=== PATIENT | male | born 1955 | race Caucasian/White ===

== ENCOUNTER 2020-02-08 11:11 | Emergency (ER) | payer OTHER, SELFPAY ==
[2020-02-08 11:20] VITALS: BP 164/92; PULSE 62; RESP 16; TEMP 37; O2SAT 98; BMI 33.5
[2020-02-08] MEDS: LIDO 1%/SOD BICARB 8.4% (10ML) 10 ML SYRINGE INJ (11:56)
--- NOTE | 2020-02-08 12:50 | ED_ITS ---
HPI - Extremity Injury (Upper) <SHANNAN Montnao - Last Filed: 02/08/20 14:31> General Chief Complaint: Extremity Injury, Upper Stated Complaint: cut ring finger on left hand Time Seen by Provider: 02/08/20 11:35 Source: patient Mode of arrival: Ambulatory Limitations: no limitations History of Present Illness HPI narrative: The patient is a 64-year-old male nonsmoker who denies pertinent medical history presents with a chief complaint of laceration to his ring finger on his left hand. He accidentally cut it with a knife while taking his knife out of the door in order to cut a muffin this morning. He states his tetanus is within the past 5 years. He states he has full range of motion. He had trouble controlling the bleeding sticking to the emergency department. He was concerned that he needs sutures Review of Systems <SHANNAN Montano - Last Filed: 02/08/20 14:31> Review of Systems Narrative: GENERAL: Denies chills, fatigue, malaise, fever, sweats. HEENT: Denies sinus pain, ear pain, sore throat, difficulty swallowing, dizziness. RESPIRATORY: Denies dyspnea, cough, wheezing, hemoptysis, sputum. CARDIOVASCULAR: Denies chest pain, palpitations, orthopnea, edema, GASTROINTESTINAL: Denies nausea, vomiting, abdominal pain, diarrhea, con stipation, melena. : Denies dysuria, frequency, incontinence, hematuria, urinary retention. MUSCULOSKELETAL: denies weakness, joint pain, or bony pain SKIN: See HPI NEUROLOGIC: Denies weakness, headache, numbness, change in speech, confusion, seizures, incoordination. PSYCHIATRIC: No concerning psychosocial issues. 12 point review of systems is negative except for those stated above Patient History <SHANNAN Montano - Last Filed: 02/08/20 14:31> Social History Smoking Status: Never smoker Smoking Status: Never smoker alcohol intake frequency: 0-2 drinks per day Substance Use Type: does not use Exam <SHANNAN Montano - Last Filed: 02/08/20 14:31> Narrative Exam Narrative: GENERAL: This is a well-nourished, well-developed patient, in no acute distress HEAD: Atraumatic. Normocephalic. No temporal or scalp tenderness. EYES: Pupils equal round and reactive. Extraocular motions intact. No scleral icterus. No injection or drainage. ENT: Nose without bleeding, purulent drainage or septal hematoma. Throat without erythema, tonsillar hypertrophy or exudate. Uvula midline. Airway patent. NECK: Trachea midline. No JVD or lymphadenopathy. Supple, nontender, no meningeal signs. CARDIOVASCULAR: Regular rate and rhythm RESPIRATORY: No cough. No increased respiratory effort. No accessory muscle use. EXTREMITIES: Able flex and extend left ring finger against resistance. Skin exam is noted. Capillary refill less than 2 seconds. Positive left radial pulse. BACK: Nontender without deformity or crepitance. No flank tenderness. NEURO: AOx3. SKIN: 1.5 cm laceration on tip of left ring finger. Through dermis. Oozing blood. Linear. No obvious muscle or tendon involvement. Initial Vital Signs Initial Vital Signs: Vital Signs Temperature 98.6 F 02/08/20 11:20 Pulse Rate 62 02/08/20 11:20 Respiratory Rate 16 02/08/20 11:20 Blood Pressure 164/92 H 02/08/20 11:20 Pulse Oximetry 98 02/08/20 11:20 <Alexi Can MD - Last Filed: 02/08/20 19:47> Initial Vital Signs Initial Vital Signs: Vital Signs Temperature 98.6 F 02/08/20 11:20 Pulse Rate 62 02/08/20 11:20 Respiratory Rate 16 02/08/20 11:20 Blood Pressure 164/92 H 02/08/20 11:20 Pulse Oximetry 98 02/08/20 11:20 Procedures <SHANNAN Montano - Last Filed: 02/08/20 14:31> Laceration Repair Laceration 1: Site: hand Side (If applicable): left Size (cm): 1.5 Description: linear Depth: simple, single layer Pre-repair: wound explored, irrigated extensively (Cleansed with Hibiclens) and deep structures intact Skin layer closed with: nylon Size (cm): 5-0 Number of sutures: 3 Technique: simple, interrupted Nerve Block Nerve Block 1: Local Anesthetic: lidocaine 1% and with bicarb Amount of anesthesia used (mL): 6 Side: left Nerve Blocks: digital Procedure Successful: Yes Patient Tolerated Procedure: Well Complications: none Course <SHANNAN Montano - Last Filed: 02/08/20 14:31> Orders Ordered: Discontinued Medications Lidocaine/Sodium Bicarbonate (Buffered Lidocaine 10 Ml Syr) 10 ml INJ NOW ONE Stop: 02/08/20 11:45 Last Admin: 02/08/20 11:56 Dose: 10 ml Documented by: RENETTA Vital Signs Vital signs: Vital Signs - 8 hr 02/08/20 11:20 Temperature 98.6 F Pulse Rate 62 Respiratory Rate 16 Blood Pressure 164/92 H Pulse Oximetry 98 <Alexi Can MD - Last Filed: 02/08/20 19:47> Orders Ordered: Discontinued Medications Lidocaine/Sodium Bicarbonate (Buffered Lidocaine 10 Ml Syr) 10 ml INJ NOW ONE Stop: 02/08/20 11:45 Last Admin: 02/08/20 11:56 Dose: 10 ml Documented by: RENETTA Vital Signs Vital signs: Vital Signs - 8 hr 02/08/20 11:20 Temperature 98.6 F Pulse Rate 62 Respiratory Rate 16 Blood Pressure 164/92 H Pulse Oximetry 98 MDM - Extremity Injury (Upper) <SHANNAN Montano - Last Filed: 02/08/20 14:31> MDM Narrative Medical decision making narrative: The patient is a 64-year-old male who presents with a chief complaint of a laceration from a knife this morning. Patient declines x-ray. Tetanus is up-to-date. Patient was sutured as per procedural note. I discussed at length monitoring for signs and symptoms of infection such as redness purulent drainage etcetera. Discussed follow-up for suture removal in 7 days. Patient mentioned taking out his sutures himself and I encouraged him to follow up with somebody for that rather than doing it himself. Patient has no questions or concerns upon discharge and states understanding of return precautions as well as follow-up care. Discharge Plan Departure Patient Disposition: Home Clinical Impression: Laceration Discharge Date/Time: 02/08/20 12:55 Instructions: DI for Laceration Repair -- Simple, DI for Minor Laceration Activity Restrictions/Additional Instructions: Thank you for trusting us with your care today. Please monitor your laceration for signs and symptom of infection such as redness, purulent drainage etcetera. Please follow up with these occur Please rest your finger and do not use your finger to much as this can stress your sutures. Please follow-up in approximately 1 week for suture removal Please come back to the emergency department for any acute concerns Referrals: Phan Hernández MD [Primary Care Provider] -
== END 2020-02-08 12:55 | disposition home or self-care (01) ==
PROVIDERS: Emergency Provider Nurse Practitioner Family; PCP Family Medicine
DX: S61.215A Laceration without foreign body of left ring finger without damage to nail, initial encounter (principal); W26.0XXA Contact with knife, initial encounter
CPT/HCPCS: 12001; 64450; 99283

== ENCOUNTER 2020-09-18 13:43 | Emergency (ER) | payer OTHER, SELFPAY ==
[2020-09-18 13:50] VITALS: BP 147/92; PULSE 88; RESP 16; TEMP 37.2; O2SAT 97; BMI 33.5
--- NOTE | 2020-09-18 13:55 | DI.RAD.S_ITS ---
PROCEDURE: XR RIBS LT MIN 3V W CXR1V INDICATIONS: fall, left lower back pain TECHNIQUE: 3 views of the left ribs were acquired, along with a single view chest. COMPARISON: None. FINDINGS: Surgical changes and devices: None. Bones and chest wall: No fractures or dislocations. No suspicious bony lesions. Overlying soft tissues appear unremarkable. Lungs and pleura: An incomplete inspiratory result is noted, causing a crowded appearance to the lung markings. Mild, streaky opacities are seen at the lung bases. No pneumothorax or significant pleural effusions are seen. Mediastinum: Mediastinal contours appear normal. Heart size is normal. IMPRESSION: No displaced rib fractures can be seen. No pneumothorax. Presumed atelectasis is seen at the lung bases in this patient with low lung volumes. Dictated by: Ollie Deutsch M.D. on 09/18/2020 at 13:14 Approved by: Ollie Deutsch M.D. on 09/18/2020 at 13:16
--- NOTE | 2020-09-18 14:05 | DI.CT.S_ITS ---
PROCEDURE: CT CHEST ABD PEL W CON INDICATIONS: fall from 3-4 feet, flank/rib pain, hematuria TECHNIQUE: After the administration of intravenous contrast, 5 mm thick sections acquired from the lung apices to the symphysis. 2.5 mm thick coronal and sagittal reformats were acquired. Additional 7 mm thick coronal maximum intensity projection (MIP) reformats acquired through the lungs. Optional 10-minute delayed imaging may be performed from the kidneys to the bladder. For radiation dose reduction, the following was used: automated exposure control, adjustment of mA and/or kV according to patient size. COMPARISON: [facility], CR, XR RIBS LT MIN 3V W CXR1V, 09/18/2020, 13:57. FINDINGS: Image quality: There is artifact associated with the metallic hardware. Artifact from the metallic hardware is reduced by metal reconstruction algorithm. CHEST: Lungs: No pulmonary contusions or lacerations. No acute airspace opacities. No pneumothorax or hemothorax. Central and peripheral airways appear patent and normal in caliber. Mediastinum: No mediastinal hematomas. Heart size is normal. Moderate to prominent coronary artery calcification can be seen. No pericardial effusion. Thoracic aorta and pulmonary arteries demonstrate normal size and enhancement. No mediastinal or hilar adenopathy. Esophagus is normal in caliber. No hiatal hernia. Chest wall: No rib fractures. No subcutaneous emphysema. No axillary or supraclavicular adenopathy. Thyroid gland demonstrates no significant abnormality. Remote, healed right anterolateral rib fractures can be seen. ABDOMEN: Solid organs: Liver is normal in size and enhancement, without lacerations. Diffuse fatty liver infiltration is noted. Gallbladder is largely decompressed at the time of this study. Biliary system is non-dilated. Pancreas enhances normally, without transection. Spleen is normal in size and enhancement, without lacerations. Incidental note is made of an accessory splenule along the posterior aspect of the primary spleen. No adrenal hematomas. Both kidneys enhance normally, without hydronephrosis or lacerations. Peritoneum and bowel: No free fluid or air. Unenhanced bowel loops demonstrate normal wall thickness and caliber. Nodes and vessels: No retroperitoneal or mesenteric adenopathy. Aorta and inferior vena cava are normal in size and enhancement. Miscellaneous: No ventral hernias. PELVIS: Genitourinary: Bladder wall thickness is normal. The prostate is prominent, measuring 5.2 cm transversely Miscellaneous: No inguinal hernias or adenopathy. Bones: There is a left hip arthroplasty. Pelvic ring and hip joints appear intact. Remote appearing thoracolumbar anterior wedge deformities are seen. No Focal L5-S1 degenerative change acute vertebral compression fractures. Mild levoconvex scoliotic curvature is noted. Focal L5-S1 degenerative change is seen. Milder degenerative changes are seen elsewhere. IMPRESSION: No fred, acute posttraumatic abnormality can be seen. No displaced rib fracture can be seen. No fractures are seen elsewhere. No pneumothorax. No solid organ injury can be seen. No free air or significant free fluid can be seen. Incidental note is made of: Moderate to prominent coronary artery calcification Remote, healed right anterolateral rib fractures Fatty liver infiltration Accessory splenule Levoconvex scoliotic curvature Left hip arthroplasty Prominent prostate Dictated by: Ollie Deutsch M.D. on 09/18/2020 at 13:44 Approved by: Ollie Deutsch M.D. on 09/18/2020 at 13:49
[2020-09-18] MEDS: HYDROMORPHONE 0.5 MG INJ IV (14:18)
[2020-09-18] MEDS: SODIUM CHLORIDE 0.9% 500 ML 1000 ML IV (14:18)
[2020-09-18 14:24] LABS: Add Manual Diff / Slide Review NO; Basophils Absolute Auto 100 /uL (0-100); Basophils Percent Auto 0.7 % (0-2); Eosinophils Absolute Auto 200 /uL (0-450); Eosinophils Percent Auto 2.2 % (2-4); Hematocrit 45.7 % (41-53); Hemoglobin 15.9 g/dL (13.5-17.5); Lymphocytes Absolute Auto 1700 /uL (1100-4500); Lymphocytes Percent Auto 22.5 % (25-40); Mean Corpuscular HGB Conc 34.7 % (30-36); Mean Corpuscular Hemoglobin 32.1 PG (26-34); Mean Corpuscular Volume 92.5 fL (80-100); Monocytes Absolute Auto 700 /uL (0-900); Monocytes Percent Auto 9.6 % (3-14); Neutrophils Absolute Auto 4900 /uL (1500-7000); Platelet Count 232 X10^3/uL (150-400); Red Blood Cell Count 4.94 X10^6/uL (4.5-5.9); Red Cell Distribution Width 13.3 % (11.6-14.8); White Blood Cell Count 7.5 X10^3/uL (4.5-11.0)
[2020-09-18 14:35] LABS: HEMOLYSIS < 15 (0-50); Potassium 4.2 mmol/L (3.4-5.1)
[2020-09-18 14:36] LABS: BUN Creatinine Ratio 16.9 (6-22); Blood Urea Nitrogen 13 mg/dL (9-20); Carbon Dioxide 27 mmol/L (22-32); Chloride 106 mmol/L (98-107); Estimated Glomerular Filt Rate > 60.0 mL/min (>60); Glucose 82 mg/dL (80-110); Sodium 139 mmol/L (137-145)
--- NOTE | 2020-09-18 14:36 | ED_ITS ---
HPI - Fall General Chief Complaint: Fall Stated Complaint: fell off countertop on 09/15, hurt back Time Seen by Provider: 09/18/20 13:46 Source: patient Mode of arrival: Ambulatory Limitations: no limitations History of Present Illness HPI Narrative: 65-year-old male nonsmoker with noncontributory chronic medical history presents with his in the chief complaint of increasingly severe left lower back pain over the past few days. He had been in his normal state of health until he accidentally fell from a height of approximately 3-4 feet and landed on his back. He denies any head or neck pain. He takes no blood thinners. He denies any chest pain or shortness of breath. He states that he was coming off a ladder and attempting to step onto a 36 in tall countertop when he missed it and therefore fell backwards. He states that he had some aching pain initially but over the following 2 days or so his pain became significantly worse. When he moves the pain can be as high as a 9/10 and when at rest and improves to about 5/10. He has attempted to treat his pain with Tylenol and cyclobenzaprine with minimal relief. He denies any trouble controlling bowel or bladder. He denies any radiation of the pain. He denies any dysuria, frequency, urgency or hematuria MD complaint: fall Onset (ago): day(s) Fall from: from height (distance) Fall witnessed: no Place fall occurred: home Loss of consciousness: none Prolonged down time: no Symptoms prior to fall: none Context: tripped/slipped Location of injury: back Severity: severe Quality: stabbing and aching Related Data Previous Rx's Medication Instructions Recorded hydrocodone-acetaminophen 1 tab PO Q4-6H PRN #10 tab 09/18/20 ketorolac 10 mg PO Q6H PRN #14 tab 09/18/20 Allergies Allergy/AdvReac Type Severity Reaction Status Date / Time Penicillins Allergy Intermediate Verified 09/18/20 13:53 Review of Systems Constitutional Constitutional: Denies chills, Denies fatigue, Denies fever(s), Denies frequent falls, Denies lethargy and Denies weakness Eyes Eyes: Denies change in vision, Denies eye discharge, Denies irritation and Denies loss of vision ENT Ears, Nose, Mouth, and Throat: Denies change in voice, Denies dizziness, Denies neck pain, Denies sore throat and Denies throat swelling Cardiovascular Cardiovascular: Denies chest pain, Denies irregular heart rhythm, Denies lightheadedness, Denies palpitations, Denies dyspnea, Denies dyspnea on exertion and Denies orthopnea Respiratory Respiratory: Denies cough, Denies dyspnea, Denies dyspnea on exertion and Denies wheezing Gastrointestinal Gastrointestinal: Denies abdominal pain, Denies change in bowel habits, Denies diarrhea, Denies nausea and Denies vomiting Musculoskeletal Musculoskeletal: Reports back pain, Denies neck pain and Denies numbness Integumentary/Breasts Skin/Breast: Denies pruritus, Denies erythema, Denies rash and Denies wounds Neurologic Neurologic: Denies behavioral changes, Denies confusion, Denies dizziness, Denies frequent falls, Denies loss of vision, Denies numbness and Denies weakness Psychiatric Psychiatric: Denies anxiety, Denies behavioral changes, Denies confusion, Denies depression, Denies homicidal ideation and Denies suicidal ideation Endocrine Endocrine: Denies fatigue, Denies flushing and Denies palpitations Hematologic/Lymphatic Hematologic/Lymphatic: Denies easy bruising Allergic/Immunologic Allergic/Immunologic: Denies urticaria, Denies throat swelling and Denies wheezing Patient History Social History Smoking Status: Never smoker Smoking Status: Never smoker alcohol intake frequency: 0-2 drinks per day Substance Use Type: does not use Exam Narrative Exam Narrative: GENERAL: [65] year old patient appears stated age. Well- nourished, well-developed patient, in mild distress. GCS 15 HEAD: Atraumatic. Normocephalic. EYES: Pupils equal round and reactive. Extraocular motions intact. No scleral icterus. No injection or drainage. ENT: Nose without bleeding, purulent drainage. Throat without erythema, tonsillar hypertrophy or exudate. Airway patent. NECK: Trachea midline. Non tender CARDIOVASCULAR: Regular rate and rhythm without murmurs, gallops, or rubs. RESPIRATORY: Clear to auscultation. Breath sounds equal bilaterally. No wheezes, rales, or rhonchi. GASTROINTESTINAL: Abdomen soft, non-tender, nondistended. EXTREMITIES: No edema or joint tenderness. BACK: Left flank pain to palpation along posterior and lateral 12th rib, no obvious swelling, ecchymosis, fluctuance or crepitance. NEURO: AOx3. SKIN: No rash or erythema of visible areas Initial Vital Signs Initial Vital Signs: Vital Signs Temperature 98.9 F 09/18/20 13:50 Pulse Rate 88 09/18/20 13:50 Respiratory Rate 16 09/18/20 13:50 Blood Pressure 147/92 H 09/18/20 13:50 Pulse Oximetry 97 09/18/20 13:50 Course Orders Ordered: ED Orders 09/18/20 13:55 XR ribs LT min 3V w CXR1V Stat 09/18/20 14:05 CT chest abd pel w con Stat 09/18/20 14:12 Basic Metabolic Panel Stat Complete Blood Count AUTO DIFF Stat Discontinued Medications Hydrocodone Bitart/Acetaminophen (Hydrocodone/Acet 5/325 Prepack) 1 bottle MISC SEEINSTR ONE Stop: 09/18/20 14:57 Last Admin: 09/18/20 15:09 Dose: Not Given Documented by: Hydromorphone HCl (Hydromorphone 0.5 Mg Inj) 0.5 mg IV NOW ONE Stop: 09/18/20 14:13 Last Admin: 09/18/20 14:18 Dose: 0.5 mg Documented by: KARINA Sodium Chloride (Normal Saline 0.9%) 500 mls @ 1,000 mls/hr IV BOLUS ONE Stop: 09/18/20 14:33 Last Admin: 09/18/20 14:18 Dose: 1,000 mls/hr Documented by: KARINA Ketorolac Tromethamine (Ketorolac 60 Mg/2 Ml Vial) 15 mg IV NOW ONE Stop: 09/18/20 14:57 Last Admin: 09/18/20 15:06 Dose: 15 mg Documented by: Vital Signs Vital signs: Vital Signs - 8 hr 09/18/20 13:50 Temperature 98.9 F Pulse Rate 88 Respiratory Rate 16 Blood Pressure 147/92 H Pulse Oximetry 97 MDM - Fall Lab Data Result diagrams: 09/18/20 14:12 09/18/20 14:12 Labs: Lab Results 09/18/20 09/18/20 Range/Units 14:12 14:12 WBC 7.5 (4.5-11.0) X10^3/uL RBC 4.94 (4.5-5.9) X10^6/uL Hgb 15.9 (13.5-17.5) g/dL Hct 45.7 (41-53) % MCV 92.5 (80-100) fL MCH 32.1 (26-34) PG MCHC 34.7 (30-36) % RDW 13.3 (11.6-14.8) % Plt Count 232 (150-400) X10^3/uL Neut % (Auto) 65.0 (50-75) % Lymph % (Auto) 22.5 L (25-40) % [place] % (Auto) 9.6 (3-14) % Eos % (Auto) 2.2 (2-4) % Baso % (Auto) 0.7 (0-2) % Neut # (Auto) 4900 (2153-0462) /uL Lymph # (Auto) 1700 (1134-4011) /uL [place] # (Auto) 700 (0-900) /uL Eos # (Auto) 200 (0-450) /uL Baso # (Auto) 100 (0-100) /uL Sodium 139 (137-145) mmol/L Potassium 4.2 (3.4-5.1) mmol/L Chloride 106 (98-107) mmol/L Carbon Dioxide 27 (22-32) mmol/L BUN 13 (9-20) mg/dL Creatinine 0.77 (0.66-1.25) mg/dL Estimated GFR > 60.0 (>60) mL/min BUN/Creatinine Ratio 16.9 (6-22) Glucose 82 (80-110) mg/dL Calcium 9.0 (8.4-10.2) mg/dL Urine Dip Bedside Urine Glucose Negative Bedside Urine Bilirubin - Negative Bedside Urine Ketone - Negative Urine Specific [place] 1.015 Bedside Urine Occult Blood +/- Bedside Urine pH 6.0 Bedside Urine Protein - Negative Bedside Urine Urobilinogen - Negative Bedside Urine Nitrite - Negative Bedside Urine Leukocytes - Negative Esterase Imaging Data Chest x-ray: Radiologist's Impression: [address] [address]SZrb ReportSigned Patient: Sea Mattson LMR#: [id number]: 6Acct:[id number]/Sex: 65 / MDate of Service: 09/18/20Loc: EDAccession Number: [id number] Procedure: XR ribs LT min 3V w CXR1V Ordering Provider: Sen Carlson D.O. PROCEDURE: XR RIBS LT MIN 3V W CXR1V INDICATIONS: fall, left lower back pain TECHNIQUE: 3 views of the left ribs were acquired, along with a single view chest. COMPARISON: None. FINDINGS: Surgical changes and devices: None. Bones and chest wall: No fractures or dislocations. No suspicious bony lesions. Overlying soft tissues appear unremarkable. Lungs and pleura: An incomplete inspiratory result is noted, causing a crowded appearance to the lung markings. Mild, streaky opacities are seen at the lung bases. No pneumothorax or significant pleural effusions are seen. Mediastinum: Mediastinal contours appear normal. Heart size is normal. IMPRESSION: No displaced rib fractures can be seen. No pneumothorax. Presumed atelectasis is seen at the lung bases in this patient with low lung volumes. Dictated by: Ollie Deutsch M.D. on 09/18/2020 at 13:14 Approved by: Ollie Deutsch M.D. on 09/18/2020 at 13:16 CT scan - abdomen/pelvis: Radiologist's Impression: Chart Viewer Diagnostics DATE TYPE STATUS REF RANGE/AUTHOR Hx Today 14:05 Ollie Deutsch Today 13:55 Ollie Deutsch SrinivasanSea Glover 65, M0 1955 REG ER, Main ED R08 180.34cm 108.862kg BMI: 33.5kg/m? Fall Search Chart No Data to Display No Data to Display No Data to Display Today 13:50 SrinivasanSea Glover 65 M [address] [address]CT Scan ReportSigned Patient: Sea Mattson LMR#: [id number]: 1955cct:[id number]/Sex: 65 / MDate of Service: 09/18/20Loc: EDAccession Number: [id number] Procedure: CT chest abd pel w con Ordering Provider: Sen Carlson D.O. PROCEDURE: CT CHEST ABD PEL W CON INDICATIONS: fall from 3-4 feet, flank/rib pain, hematuria TECHNIQUE: After the administration of intravenous contrast, 5 mm thick sections acquired from the lung apices to the symphysis. 2.5 mm thick coronal and sagittal reformats were acquired. Additional 7 mm thick coronal maximum intensity projection (MIP) reformats acquired through the lungs. Optional 10-minute delayed imaging may be performed from the kidneys to the bladder. For radiation dose reduction, the following was used: automated exposure control, adjustment of mA and/or kV according to patient size. COMPARISON: [facility], CR, XR RIBS LT MIN 3V W CXR1V, 09/18/2020, 13:57. FINDINGS: Image quality: There is artifact associated with the metallic hardware. Artifact from the metallic hardware is reduced by metal reconstruction algorithm. CHEST: Lungs: No pulmonary contusions or lacerations. No acute airspace opacities. No pneumothorax or hemothorax. Central and peripheral airways appear patent and normal in caliber. Mediastinum: No mediastinal hematomas. Heart size is normal. Moderate to prominent coronary artery calcification can be seen. No pericardial effusion. Thoracic aorta and pulmonary arteries demonstrate normal size and enhancement. No mediastinal or hilar adenopathy. Esophagus is normal in caliber. No hiatal hernia. Chest wall: No rib fractures. No subcutaneous emphysema. No axillary or supraclavicular adenopathy. Thyroid gland demonstrates no significant abnormality. Remote, healed right anterolateral rib fractures can be seen. ABDOMEN: Solid organs: Liver is normal in size and enhancement, without lacerations. Diffuse fatty liver infiltration is noted. Gallbladder is largely decompressed at the time of this study. Biliary system is non-dilated. Pancreas enhances normally, without transection. Spleen is normal in size and enhancement, without lacerations. Incidental note is made of an accessory splenule along the posterior aspect of the primary spleen. No adrenal hematomas. Both kidneys enhance normally, without hydronephrosis or lacerations. Peritoneum and bowel: No free fluid or air. Unenhanced bowel loops demonstrate normal wall thickness and caliber. Nodes and vessels: No retroperitoneal or mesenteric adenopathy. Aorta and inferior vena cava are normal in size and enhancement. Miscellaneous: No ventral hernias. PELVIS: Genitourinary: Bladder wall thickness is normal. The prostate is prominent, measuring 5.2 cm transversely Miscellaneous: No inguinal hernias or adenopathy. Bones: There is a left hip arthroplasty. Pelvic ring and hip joints appear intact. Remote appearing thoracolumbar anterior wedge deformities are seen. No Focal L5-S1 degenerative change acute vertebral compression fractures. Mild levoconvex scoliotic curvature is noted. Focal L5-S1 degenerative change is seen. Milder degenerative changes are seen elsewhere. IMPRESSION: No fred, acute posttraumatic abnormality can be seen. No displaced rib fracture can be seen. No fractures are seen elsewhere. No pneumothorax. No solid organ injury can be seen. No free air or significant free fluid can be seen. Incidental note is made of: Moderate to prominent coronary artery calcification Remote, healed right anterolateral rib fractures Fatty liver infiltration Accessory splenule Levoconvex scoliotic curvature Left hip arthroplasty Prominent prostate Dictated by: Ollie Deutsch M.D. on 09/18/2020 at 13:44 Approved by: Ollie Deutsch M.D. on 09/18/2020 at 13:49 Discharge Plan Departure Patient Disposition: Home Clinical Impression: Contusion of flank and back Qualifiers: Encounter type: initial encounter Qualified Code(s): S30.1XXA - Contusion of abdominal wall, initial encounter Instructions: How to Prevent Falls Activity Restrictions/Additional Instructions: *You have been diagnosed with [fall with back and flank pain. Lab work and CT scan are very reassuring and there is no evidence of bleeding or broken bones] *What to do: *Take medications as directed: [facility] *Follow up with your primary care provider in 2-3 days, call for an appointment. Let them know you were seen in the Emergency Department and that we ask that you be seen in follow up *Return to ER if you should have any new, worsening or concerning symptoms, such as [increased pain, fever 101> shortness of breath, passing out, or other bothersome symptoms ] You have been prescribed narcotic medications. While on these medications you cannot drive or operate heavy machinery. Additionally you cannot sign legal documents or perform any duties such as this. Many people get constipated on narcotic medications so it would be advisable to discuss stool softeners with the pharmacist when you warehouse picker your prescription. Please understand that we cannot provide further refills of narcotics or controlled substances through the ED and your pain management will need to be through your Primary Care Provider Prescriptions: New hydrocodone-acetaminophen 5-325 mg tablet 1 tab PO Q4-6H PRN (Reason: pain) Qty: 10 RF: 0 ketorolac 10 mg tablet 10 mg PO Q6H PRN (Reason: pain) Qty: 14 RF: 0 Referrals: Phan Hernández MD [Primary Care Provider] -
[2020-09-18] MEDS: KETOROLAC 60 MG/2 ML VIAL 15 MG IV (15:06)
[2020-09-18 15:28] VITALS: BP 160/99; PULSE 75; RESP 14; O2SAT 96
== END 2020-09-18 15:32 | disposition home or self-care (01) ==
PROVIDERS: Emergency Provider Emergency Medicine; PCP Family Medicine
DX: S30.1XXA Contusion of abdominal wall, initial encounter (principal); M54.5 Low back pain; R31.9 Hematuria, unspecified; R07.81 Pleurodynia; W19.XXXA Unspecified fall, initial encounter
CPT/HCPCS: 36415; 71101; 71260; 74177; 80048; 81003; 85025; 96361; 96374; 96375; 99284; J1170; J1885; Q9967

== ENCOUNTER → 2020-11-04 09:03 | Outpatient (CLI) | payer OTHER, SELFPAY ==
[2020-11-04] MEDS: COVID-19 VACC #1, MRNA(MOD) 100 MCG/0.5 ML VIAL IM (09:11)
== END ==
PROVIDERS: PCP Family Medicine; Visit Provider Internal Medicine
DX: Z23 Encounter for immunization (principal)
CPT/HCPCS: 0011A; 91301

== ENCOUNTER → 2020-12-02 08:42 | Outpatient (CLI) | payer OTHER, SELFPAY ==
[2020-12-02] MEDS: COVID-19 VACC #2, MRNA(MOD) 100 MCG/0.5 ML VIAL IM (08:50)
== END ==
PROVIDERS: PCP Family Medicine; Visit Provider Internal Medicine
DX: Z23 Encounter for immunization (principal)
CPT/HCPCS: 0012A; 91301

== ENCOUNTER → 2021-03-13 14:05 | Outpatient (CLI) | payer MEDICARE, SELFPAY ==
[2021-03-13 16:20] LABS: Prostate Specific Antigen 4.28 ng/mL (0.10-4.00)
== END ==
PROVIDERS: PCP Family Medicine; Referring Provider Urology; Visit Provider Urology
DX: R97.20 Elevated prostate specific antigen [PSA] (principal)
CPT/HCPCS: 36415; 84153

== ENCOUNTER → 2022-03-23 09:52 | Outpatient (CLI) | payer MEDICARE, SELFPAY ==
[2022-03-23 12:30] LABS: Hematocrit 41.5 % (41-53); Hemoglobin 14.3 g/dL (13.5-17.5); Mean Corpuscular HGB Conc 34.5 % (30-36); Mean Corpuscular Hemoglobin 31.8 PG (26-34); Mean Corpuscular Volume 91.9 fL (80-100); Platelet Count 230 X10^3/uL (150-400); Red Blood Cell Count 4.52 X10^6/uL (4.5-5.9); Red Cell Distribution Width 13.9 % (11.6-14.8); White Blood Cell Count 3.9 X10^3/uL (4.5-11.0)
[2022-03-23 12:57] LABS: Alanine Aminotransferase 25 IU/L (<50); Albumin Globulin Ratio 1.7 (1.0-2.8); Alkaline Phosphatase 78 U/L (38-126); Aspartate Aminotransferase 29 IU/L (17-59); BUN Creatinine Ratio 20.5 (6-22); Bilirubin Total 0.5 mg/dL (0.2-1.3); Blood Urea Nitrogen 15 mg/dL (9-20); Calcium 8.9 mg/dL (8.4-10.2); Carbon Dioxide 27 mmol/L (22-32); Chloride 104 mmol/L (98-107); Cholesterol 179 mg/dL (140-199); Estimated Glomerular Filt Rate > 60 mL/min (>60); Globulin 2.4 g/dL (1.7-4.1); Glucose 89 mg/dL (80-110); HDL Cholesterol 61 mg/dL (40-60); HEMOLYSIS < 15 (0-50); LDL Cholesterol Calculated 95 mg/dL (<100); Potassium 4.4 mmol/L (3.4-5.1); Sodium 138 mmol/L (137-145); Total Protein 6.4 g/dL (6.3-8.2); Triglycerides 117 mg/dL (35-150)
[2022-03-23 13:33] LABS: TSH w/ Reflex to FT4 2.61 uIU/mL (0.47-4.68)
[2022-03-24 08:04] LABS: PSA Free % 11.2 % (.); PSA, Total 5.1 ng/mL (0.0-4.0)
== END ==
PROVIDERS: PCP Internal Medicine; Referring Provider Internal Medicine; Visit Provider Internal Medicine
DX: E78.2 Mixed hyperlipidemia (principal); N13.8 Other obstructive and reflux uropathy; N40.1 Benign prostatic hyperplasia with lower urinary tract symptoms; R97.20 Elevated prostate specific antigen [PSA]
CPT/HCPCS: 36415; 80053; 80061; 84153; 84154; 84443; 85027

== ENCOUNTER → 2022-08-02 09:40 | Outpatient (CLI) | payer MEDICARE, SELFPAY ==
--- NOTE | 2022-08-02 09:41 | DI.RAD.S_ITS ---
PROCEDURE: FL UPPER GI SERIES INDICATIONS: dysphagia, cough COMPARISON: None. FINDINGS: KUB: Preprocedural oil scout film demonstrates a normal bowel gas pattern. No suspicious abdominal calcifications. Visualized solid organ contours appear normal. Bony structures appear unremarkable. Esophagus: Esophageal mucosa is normal on air-contrast views. On single-contrast views, there is overall normal esophageal peristalsis with a few episodes of spontaneous mild tertiary contractions resulting in delayed and retrograde flow of ingested oral contrast. No strictures, extrinsic mass effects, or diverticula. Small sliding hiatal hernia noted. Although no elicited episodes of gastroesophageal reflux, there was 1 episode of likely spontaneous gastroesophageal reflux. There is normal transit of a calibrated barium tablet through the esophagus. Stomach: The stomach is normally distensible, with normal rugal fold thickness. No mucosal masses or ulcers. Pylorus and duodenal bulb appear normal in morphology. Duodenal folds are normal in thickness as well. IMPRESSION: 1. A few episodes of spontaneous, mild tertiary contractions resulting in delayed and retrograde flow of ingested oral contrast. 2. Small hiatal hernia. 3. A single episode of likely spontaneous gastroesophageal reflux noted during image acquisition. Otherwise, gastroesophageal reflux of contrast could not be elicited. 4. No evidence for strictures, extrinsic mass effect, diverticula, or abnormal appearance of the mucosa of the imaged esophagus, stomach, and duodenum. Dictated by: Brice Dobson M.D. on 08/02/2022 at 17:51 Approved by: Brice Dobson M.D. on 08/02/2022 at 17:57
== END ==
PROVIDERS: PCP Internal Medicine; Referring Provider Internal Medicine; Visit Provider Internal Medicine
DX: R13.10 Dysphagia, unspecified (principal); K44.9 Diaphragmatic hernia without obstruction or gangrene
CPT/HCPCS: 74240

== ENCOUNTER → 2022-10-29 14:38 | Outpatient (CLI) | payer MEDICARE, SELFPAY ==
[2022-10-29 15:14] LABS: Appearance Urine UA CLEAR; Bilirubin Urine UA NEGATIVE (NEGATIVE); Color Urine UA YELLOW; Glucose Urine UA NEGATIVE (Negative); Ketones Urine UA NEGATIVE (NEGATIVE); Leukocyte Esterase Urine UA NEGATIVE (NEGATIVE); Nitrite Urine UA NEGATIVE (Negative); Occult Blood Urine UA NEGATIVE (Negative); Protein Urine UA NEGATIVE (Negative); pH Urine UA 7.5 (4.5-8.0)
[2022-10-29 15:29] LABS: RBC Urine None Seen (0-5/HPF); Squamous Epithelial Cell Urine None Seen (0-5/HPF); WBC Urine None Seen (0-5/HPF)
[2022-10-29 15:30] LABS: Bacteria Urine None Seen; Culture Indicated Urine Cult Not Indicated
[2022-10-29 18:53] LABS: BUN Creatinine Ratio 14.6 (6-22); Blood Urea Nitrogen 14 mg/dL (9-20); Calcium 8.9 mg/dL (8.4-10.2); Carbon Dioxide 31 mmol/L (22-32); Chloride 104 mmol/L (98-107); Estimated Glomerular Filt Rate > 60 mL/min (>60); Glucose 96 mg/dL (80-110); HEMOLYSIS < 15 (0-50); Potassium 4.2 mmol/L (3.4-5.1); Sodium 140 mmol/L (137-145)
[2022-10-29 19:21] LABS: Prostate Specific Antigen 3.88 ng/mL (0.10-4.00)
== END ==
PROVIDERS: PCP Internal Medicine; Referring Provider Urology; Visit Provider Urology
DX: R97.20 Elevated prostate specific antigen [PSA] (principal)
CPT/HCPCS: 36415; 80048; 81001; 84153

== ENCOUNTER → 2023-07-24 09:30 | Outpatient (CLI) | payer MEDICARE, SELFPAY ==
--- NOTE | 2023-07-24 09:33 | DI.RAD.S_ITS ---
PROCEDURE: XR CHEST 2V INDICATIONS: chest pain TECHNIQUE: 2 views of the chest were acquired. COMPARISON: None. FINDINGS: Surgical changes and devices: None. Lungs and pleura: Lungs are clear. No pleural effusions or pneumothorax. Mediastinum: Mediastinal contours are normal. Heart size is normal. Bones and chest wall: No suspicious bony abnormalities. Soft tissues appear unremarkable. IMPRESSION: No acute cardiopulmonary abnormality is seen. Dictated by: Tahri Lundy M.D. on 07/24/2023 at 11:29 Approved by: Tahir Lundy M.D. on 07/24/2023 at 11:29
[2023-07-24 12:09] LABS: Hematocrit 42.3 % (41-53); Hemoglobin 14.8 g/dL (13.5-17.5); Mean Corpuscular HGB Conc 34.9 % (30-36); Mean Corpuscular Hemoglobin 32.1 PG (26-34); Mean Corpuscular Volume 91.9 fL (80-100); Platelet Count 203 X10^3/uL (150-400); Red Blood Cell Count 4.61 X10^6/uL (4.5-5.9); White Blood Cell Count 4.4 X10^3/uL (4.5-11.0)
[2023-07-24 12:57] LABS: Aspartate Aminotransferase 30 IU/L (17-59); BUN Creatinine Ratio 23.4 (6-22); Blood Urea Nitrogen 18 mg/dL (9-20); Calcium 9.4 mg/dL (8.4-10.2); Carbon Dioxide 26 mmol/L (22-32); Chloride 104 mmol/L (98-107); Cholesterol 208 mg/dL (140-199); Estimated Glomerular Filt Rate > 60 mL/min (>60); Glucose 88 mg/dL (80-110); HDL Cholesterol 62 mg/dL (40-60); HEMOLYSIS < 15 (0-50); LDL Cholesterol Calculated 112 mg/dL (<100); Potassium 4.3 mmol/L (3.4-5.1); Sodium 137 mmol/L (137-145); Triglycerides 171 mg/dL (35-150)
[2023-07-27 11:17] LABS: PSA, Total 3.1 ng/mL (0.0-4.0)
== END ==
PROVIDERS: PCP Internal Medicine; Referring Provider Internal Medicine; Visit Provider Internal Medicine
DX: R07.9 Chest pain, unspecified (principal); E78.2 Mixed hyperlipidemia; R97.20 Elevated prostate specific antigen [PSA]
CPT/HCPCS: 36415; 71046; 80048; 80061; 84153; 84154; 84450; 85027; 93005

== ENCOUNTER → 2023-07-25 09:51 | Outpatient (CLI) | payer MEDICARE, SELFPAY ==
--- NOTE | 2023-07-27 07:11 | DI.NM.S_ITS ---
DATE OF SERVICE: 07/25/2023 PROCEDURE: Exercise perfusion study. INDICATIONS: Chest pain with underlying hypertension, hyperlipidemia. RADIOPHARMACEUTICAL: 27.3 millicurie technetium-99m Myoview IV was injected at stress and 25.2 millicurie technetium-99m Myoview IV was injected at rest. CARDIAC STRESS: The patient underwent exercise perfusion study under the supervision of an attending staff. The patient walked on Marco protocol for 8 minutes and 38 seconds, achieved maximum heart rate of 132, which was 86% of target heart rate. Resting blood pressure 120/80 and peak blood pressure 156/88. Achieved 10.1 METs of workload. KEATON - 14%. Baseline rhythm was sinus. During stress, no convincing ischemic changes seen. No significant arrhythmias. No chest pain. The patient felt fatigue and dyspnea. RAW DATA: There is increased subdiaphragmatic activity. Diaphragmatic shadow seen as well. Stress left ventricular ejection fraction 71% without any significant wall motion abnormalities. Resting end- diastolic volume 133 mL. TID ratio 0.80, which is within normal limits. Lung/heart ratio was not calculated. GATED STUDY: Stress supine, resting supine, and stress prone images were compared to each other. Stress supine and resting supine images revealed moderate size, mild to moderately decreased perfusion of inferior wall extending into the inferolateral wall sparing mid inferolateral wall. During the stress prone images, significant improvement in the inferior wall as well as inferolateral wall defect. The stress prone images remained to have mildly decreased perfusion of distal inferolateral wall. No reversible ischemia. CONCLUSIONS: 1. No obvious reversible ischemia. 2. Inferior and inferolateral wall defect which were seen during stress supine and resting supine images got significantly improved during stress prone images. There is a diaphragmatic shadow and increased diaphragmatic activity seen near the inferior border of the heart. The patient's weight is 253 pounds. Most likely, we are dealing with tissue attenuation artifact. No wall motion abnormalities in those segments. Hence, likely we are dealing with tissue attenuation artifact. Good exercise tolerance. Normal hemodynamic response. Preserved left ventricular function. Overall, low-risk myocardial perfusion scan. Sea Mattson - BHARGAVI/cristobal/august doc#: [id number]/job#: [id number] dd: 07/26/2023 16:53:00 dt: 07/27/2023 07:04:00 DICTATING MD/COPIES TO: Radha Moya MD COPIES MNE: ANAHY;
== END ==
PROVIDERS: PCP Internal Medicine; Referring Provider Internal Medicine; Visit Provider Internal Medicine
DX: R07.9 Chest pain, unspecified (principal)
CPT/HCPCS: 78452; 93010; 93017; A9502

== ENCOUNTER → 2024-10-05 15:08 | Outpatient (CLI) | payer MEDICARE, SELFPAY ==
[2024-10-05 15:42] LABS: Hematocrit 41.4 % (41-53); Hemoglobin 14.5 g/dL (13.5-17.5); Mean Corpuscular Hemoglobin 32.8 PG (26-34); Mean Corpuscular Volume 93.7 fL (80-100); Platelet Count 217 X10^3/uL (150-400); Red Blood Cell Count 4.42 X10^6/uL (4.5-5.9); White Blood Cell Count 6.3 X10^3/uL (4.5-11.0)
[2024-10-05 16:04] LABS: Aspartate Aminotransferase 34 IU/L (17-59); BUN Creatinine Ratio 17.3 (6-22); Blood Urea Nitrogen 14 mg/dL (9-20); Calcium 8.9 mg/dL (8.4-10.2); Carbon Dioxide 27 mmol/L (22-32); Chloride 104 mmol/L (98-107); Cholesterol 206 mg/dL (140-199); Estimated Glomerular Filt Rate > 60 mL/min (>60); Glucose 90 mg/dL (80-110); HDL Cholesterol 70 mg/dL (40-60); HEMOLYSIS < 15 (0-50); LDL Cholesterol Calculated 93 mg/dL (<100); Potassium 4.2 mmol/L (3.4-5.1); Sodium 138 mmol/L (137-145); Triglycerides 214 mg/dL (35-150)
[2024-10-05 16:36] LABS: TSH w/ Reflex to FT4 3.33 uIU/mL (0.47-4.68)
== END ==
PROVIDERS: PCP Internal Medicine; Referring Provider Internal Medicine; Visit Provider Internal Medicine
DX: E78.2 Mixed hyperlipidemia (principal); R13.10 Dysphagia, unspecified; G51.0 Bell's palsy
CPT/HCPCS: 36415; 80048; 80061; 84443; 84450; 85027

== ENCOUNTER → 2024-10-19 14:56 | Outpatient (CLI) | payer MEDICARE, SELFPAY ==
--- NOTE | 2024-10-19 14:58 | DI.RAD.S_ITS ---
PROCEDURE: XR CHEST 2V INDICATIONS: cough TECHNIQUE: 2 views of the chest were acquired. COMPARISON: [facility], CR, XR CHEST 2V, 07/24/2023, 9:38. FINDINGS: Heart, mediastinum and pulmonary vascular: Heart is normal in size and configuration. Increased density in the right paratracheal region is unchanged from 2022 comparison exam over 1 year prior . Therefore is likely a tortuous brachiocephalic artery or perhaps enlarged thyroid. Pulmonary vascular is normal. Lungs: Minor airspace disease in the right base is more likely atelectasis rather developing infiltrate. Pleural spaces: Normal-no effusions or pneumothorax. Bones and soft tissues: Normal IMPRESSION: Minor airspace in the right base more likely atelectasis developing infiltrate. Dictated by: Alexi Sen M.D. on 10/20/2024 at 11:42 Approved by: Alexi Sen M.D. on 10/20/2024 at 11:43
== END ==
LOC: RAD 14:57
PROVIDERS: PCP Internal Medicine; Referring Provider Internal Medicine; Visit Provider Internal Medicine
DX: J20.9 Acute bronchitis, unspecified (principal); J45.909 Unspecified asthma, uncomplicated
CPT/HCPCS: 71046

== ENCOUNTER → 2025-04-27 09:04 | Outpatient (CLI) | payer MEDICARE, SELFPAY ==
[2025-04-27 10:28] LABS: Blood Urea Nitrogen 13 mg/dL (9-20); Calcium 9.3 mg/dL (8.4-10.2); Carbon Dioxide 25 mmol/L (22-32); Chloride 104 mmol/L (98-107); Cholesterol 165 mg/dL (140-199); Estimated Glomerular Filt Rate > 60 mL/min (>60); Glucose 86 mg/dL (70-99); HDL Cholesterol 72 mg/dL (40-60); HEMOLYSIS < 15 (0-50); Potassium 4.4 mmol/L (3.4-5.1); Sodium 137 mmol/L (137-145); Triglycerides 89 mg/dL (35-150)
[2025-04-27 10:35] LABS: Hemoglobin A1C% w Est Avg Glu 5.0 % (4.0-6.0)
== END ==
PROVIDERS: PCP Internal Medicine; Referring Provider Internal Medicine; Visit Provider Internal Medicine
DX: Z86.69 Personal history of other diseases of the nervous system and sense organs (principal)
CPT/HCPCS: 36415; 80048; 80061; 83036; 84450